=== PATIENT | male | born 1950 ===

== ENCOUNTER 2018-03-09 00:10 | Emergency (ER) | payer OTHER ==
[2018-03-09] MEDS ORDERED: NS 0.9% 1000 ML* 1,000 ML IV ONE (00:33)
[2018-03-09 00:56] LABS: ABS Basophils 0.1 10^3/ul (0-0.2); ABS Eosinophils 0.2 10^3/ul (0-0.6); ABS Lymphocytes 3.2 10^3/ul (1.0-4.8); ABS Monocytes 0.9 10^3/ul (0-0.8); ABS Neutrophils 4.8 10^3/ul (1.5-7.7); ABS Nucleated RBC 0 10^3/ul; Eosinophil % 2.5 % (0-6); Hematocrit 39 % (42-52); Mean Corpuscular HGB Conc 35 g/dl (31-36); Mean Corpuscular Hemoglobin 33 pg (27-31); Mean Corpuscular Volume 92 fL (80-94); Mean Platelet Volume 7.5 um3 (7.4-10.4); Nucleated Red Blood Cells % 0.1; Platelet Count 224 10^3/ul (150-450); Red Blood Count 4.27 10^6/ul (4.00-5.40); Red Cell Distribution Width 12 % (10.5-15); White Blood Count 9.2 10^3/ul (3.5-10.8)
[2018-03-09 01:04] LABS: INR 1.03 (0.77-1.02)
--- NOTE | 2018-03-09 01:06 | ED ---
GI/ HPI - HPI Summary HPI Summary: This is dwayne Linares documenting for attending Crystal Angelo MD. This patient is a 68 year old M presenting to ED with a chief complaint of rectal bleeding since 1 hour ago. He has had 5-6 episodes of rectal bleeding today and he states he has never had this sx before. The patient thinks he may have been started back on a [facility]'t [facility]. The patient had a syncopal episode sitting in a chair in the waiting room. He had no syncope at home. The patient reports he is currently not in any pain. Symptoms aggravated by nothing. Symptoms alleviated by nothing. Patient reports having rumbling sounds in his stomach. - History of Current Complaint Chief Complaint: EDGIBleed Time Seen by Provider: 03/09/18 00:27 Stated Complaint: BLOOD IN STOOL Hx Obtained From: Patient Onset/Duration: Started Hours Ago Timing: Intermittent Severity: Mild Current Severity: Mild Pain Intensity: 3 Associated Signs and Symptoms: Positive: Other: - rectal bleeding, syncopal episode in the waiting room of the ED, currently is not in pain Aggravating Factor(s): Nothing Alleviating Factor(s): Nothing - Allergy/Home Medications Allergies/Adverse Reactions: Allergies Allergy/AdvReac Type Severity Reaction Status Date / Time No Known Allergies Allergy Verified 06/28/13 14:23 PMH/Surg Hx/FS Hx/Imm Hx Endocrine/Hematology History: Denies: Hx Diabetes Cardiovascular History: Denies: Hx Coronary Artery Disease, Hx Hypertension - Immunization History Immunizations Up to Date: Yes Infectious Disease History: Yes Infectious Disease History: Denies: Traveled Outside the [place] in Last 30 Days - Family History Known Family History: Positive: Other Family History: heart attack - father at age 62 - Social History Alcohol Use: Occasionally Substance Use Type: Reports: None Smoking Status (MU): Former Smoker Review of Systems Constitutional: Negative Negative: Fever, Chills, Fatigue Eyes: Negative Negative: Epistaxis Cardiovascular: Other - syncopal episode in the emergency room. Respiratory: Negative Negative: Shortness Of Breath Gastrointestinal: Other - rectal bleeding All Other Systems Reviewed And Are Negative: Yes Physical Exam - Summary Physical Exam Summary: VITAL SIGNS: Reviewed. GENERAL: Patient is pale, no acute distress HEAD AND FACE: No signs of trauma. No ecchymosis, hematomas or skull depressions. No sinus tenderness. EYES: PERRLA, EOMI x 2, No injected conjunctiva, no nystagmus. EARS: Hearing grossly intact. Ear canals and tympanic membranes are within normal limits. MOUTH: Oropharynx within normal limits. NECK: Supple, trachea is midline, no adenopathy, no JVD, no carotid bruit, no c- spine tenderness, neck with full ROM. CHEST: Symmetric, no tenderness at palpation LUNGS: Clear to auscultation bilaterally. No wheezing or crackles. CVS: Mildly tachycardic, Regular rhythm, S1 and S2 present, no murmurs or gallops appreciated. ABDOMEN: Soft, non-tender. No signs of distention. No rebound no guarding, and no masses palpated. Bowel sounds are normal. EXTREMITIES: Left AKA NEURO: Alert and oriented x 3. No acute neurological deficits. Speech is normal and follows commands. SKIN: Dry and warm RECTAL EXAM: maroon/fresh blood on the examining finger, no active bleeding, no masses, normal sphincter tone. Triage Information Reviewed: Yes Vital Signs On Initial Exam: Initial Vitals Temp Pulse Resp BP Pulse Ox 98.3 F 105 20 154/104 96 03/09/18 00:17 03/09/18 00:17 03/09/18 00:17 03/09/18 00:17 03/09/18 00:17 Vital Signs Reviewed: Yes Diagnostics - Vital Signs Vital Signs Temp Pulse Resp BP Pulse Ox 03/09/18 00:30 91 147/106 96 03/09/18 00:17 98.3 F 105 20 154/104 96 - Laboratory Lab Results: Lab Results 03/09/18 Range/Units 00:47 WBC 9.2 (3.5-10.8) 10^3/ul RBC 4.27 (4.00-5.40) 10^6/ul Hgb 14.0 (14.0-18.0) g/dl Hct 39 L (42-52) % MCV 92 (80-94) fL MCH 33 H (27-31) pg MCHC 35 (31-36) g/dl RDW 12 (10.5-15) % Plt Count 224 (150-450) 10^3/ul MPV 7.5 (7.4-10.4) um3 Neut % (Auto) 51.9 (38-83) % Lymph % (Auto) 35.0 (25-47) % [place] % (Auto) 10.0 H (0-7) % Eos % (Auto) 2.5 (0-6) % Baso % (Auto) 0.6 (0-2) % Absolute Neuts (auto) 4.8 (1.5-7.7) 10^3/ul Absolute Lymphs (auto) 3.2 (1.0-4.8) 10^3/ul Absolute Monos (auto) 0.9 H (0-0.8) 10^3/ul Absolute Eos (auto) 0.2 (0-0.6) 10^3/ul Absolute Basos (auto) 0.1 (0-0.2) 10^3/ul Absolute Nucleated RBC 0 10^3/ul Nucleated RBC % 0.1 Result Diagrams: 03/09/18 00:47 08 00:47 Lab Statement: Any lab studies that have been ordered have been reviewed, and results considered in the medical decision making process. - Radiology CXR Radiology Interpretation Completed By: ED Physician - Elevation of R diaphragm. Cannot r/o subpulmonic effusion. No acute disease. Pending radiologist official interpretation. - EKG 0116 Cardiac Rate: NL - 67 BPM EKG Rhythm: Sinus Rhythm EKG Interpretation: non-specific T wave changes Re-Evaluation - Re-Evaluation First Eval Re-Evaluation Time: 01:33 Comment: Discussed results with the patient and plan for transfer. Patient understands and agrees. GIGU Course/Dx - Course Assessment/Plan: This patient is a 68 yo M with hx of arthritis. He takes meloxicam. He came in the ED c/o a few episodes of passing blood through the rectum. The patient denies dizziness at home and denies CP. He did have a syncopal episode at triage. His BP in the ED is okay. On exam, the patient did have maroon/fresh blood per rectal, no active bleeding. Patient blood count is essentially normal. He will be transferred to [facility] because we do not have a GI doctor vocational education professional. Patient understands and agrees. - Diagnoses Differential Diagnoses - Male: Other - lower GI bleed Provider Diagnoses: Lower GI bleed - Physician Notifications Time Discussed With Above Provider: 01:43 Instructed by Provider To: Other - Discussed with Dr. Motta about the patient's case who accepted the patient in the ED in [facility] - Critical Care Time Critical Care Time: 30-74 min - 40 minutes Discharge - Sign-Out/Discharge Documenting (check all that apply): Patient Departure - Discharge Plan Condition: Stable Disposition: TRANS HIGHER LVL OF CARE FAC Referrals: No Primary Care Phys,NOPCP [Primary Care Provider] - - Billing Disposition and Condition Condition: STABLE Disposition: Trans Higher Lvl of Care Fac
[2018-03-09 01:12] LABS: EGFR Non-African American 101.1 (>60)
[2018-03-09 02:33] VITALS: BP 153/89
--- NOTE | 2018-03-09 07:40 | RAD ---
HISTORY: GI bleed COMPARISONS: None VIEWS: 1: frontal portable view of the chest at 1:10 AM FINDINGS: LINES AND TUBES: None. CARDIOMEDIASTINAL SILHOUETTE: The cardiomediastinal silhouette is normal for portable technique. PLEURA: There is elevation of the right hemidiaphragm. LUNG PARENCHYMA: The lungs are clear. ABDOMEN: The upper abdomen is clear. There is no subphrenic gas. BONES AND SOFT TISSUES: No bone or soft tissue abnormalities are noted. IMPRESSION: ELEVATION OF THE RIGHT HEMIDIAPHRAGM SUGGESTIVE OF DIAPHRAGMATIC PARALYSIS. R2
== END 2018-03-09 02:31 | disposition short-term general hospital (02) ==
LOC: ED 00:10
DX: K92.2 Gastrointestinal hemorrhage, unspecified (principal)
CPT/HCPCS: 36415; 71045; 80053; 85025; 85610; 85730; 86850; 86900; 86901; 86922; 93005; 99283